=== PATIENT | female | born 2000 | race Two or more races ===

== ENCOUNTER 2024-11-29 21:25 | Emergency (ER) | payer MEDICAID, SELFPAY ==
[2024-11-29 21:25] VITALS: BMI 21.2
[2024-11-29 21:43] VITALS: BP 117/82; PULSE 82; RESP 16; TEMP 37.2; O2SAT 99
--- NOTE | 2024-11-29 21:53 | PD.EDRME ---
Rapid Medical Screening Exam RME Arrival date/time: 11/29/24 21:25 This is a 24-year-old female that comes in with complaints of right lower mid abdominal pain that radiates to her back. Patient complains of nausea. Patient reports a fever at home for the past 2 days. Patient denies any urinary symptoms. I have greeted and performed a focused initial assessment of this patient. Initial appropriate labs ordered at this time. A comprehensive ED assessment and evaluation of the patient and analysis of all test and completion of medical decision making process will be conducted by additional ED provider. Chief Complaint: Abdominal Pain Time Seen by Provider: 11/29/24 21:30 Vital signs: Vital Signs Temperature 99 F 11/29/24 21:43 Pulse Rate 82 11/29/24 21:43 Respiratory Rate 16 11/29/24 21:43 Blood Pressure 117/82 11/29/24 21:43 Pulse Oximetry (%) 99 11/29/24 21:43 Oxygen Delivery Method Room Air 11/29/24 21:43
[2024-11-29 22:12] LABS: Collection Type, Urine Voided
[2024-11-29] MEDS: ACETAMINOPHEN 325 MG TABLET 650 MG PO (22:16)
[2024-11-29] MEDS: IBUPROFEN TAB 600 MG TABLET PO (22:17)
[2024-11-29 22:33] LABS: HCG,Qualitative Serum Negative
[2024-11-29 22:34] LABS: Bacteria,Urine 1+; Bilirubin,Urine Negative (Negative); Blood,Urine 3+ (Negative); Clarity,Urine Turbid (Clear/Hazy); Color,Urine Yellow (Lt Yel-Yel); Culture Indicated,Urine Contaminated; Glucose, Urine Negative (Negative); Ketones,Urine Negative (Negative); Leukocyte Esterase,Urine Positive (Negative); Nitrite,Urine Positive (Negative); Protein,Urine 1+ (Neg - Trace); RBC,Urine 226 /hpf (0-3); Specific Gravity,Urine 1.015 (1.001-1.035); Squamous Epithelial Cell,Urine 15 /hpf (0-5); Urobilinogen,Urine Negative mg/dL (0.0-1.0); WBC,Urine 310 /hpf (0-5)
[2024-11-29 22:49] VITALS: BP 112/64; PULSE 87; RESP 16; TEMP 37.2; O2SAT 100
--- NOTE | 2024-11-29 22:51 | EDNOTE_ITS ---
ED General RME/HPI General Chief complaint: Abdominal Pain Stated complaint: flank pain right Time Seen by Provider: 11/29/24 21:30 Arrival date/time: 11/29/24 21:25 RME / HPI RME / HPI narrative: 11/29/24 21:25 RME: This is a 24-year-old female that comes in with complaints of right lower mid abdominal pain that radiates to her back. Patient complains of nausea. Patient reports a fever at home for the past 2 days. Patient denies any urinary symptoms. RAUL HPI: 24-year-old female otherwise healthy, implantable control, presents to the emergency department with right flank pain that radiates to the right upper quadrant and right lower quadrant. She also notes associated anorexia, no nausea or vomiting. She denies dysuria but notes increased urinary frequency particularly nocturia where for the last 3 nights she has been up to the restroom 2 times a night. She denies vaginal discharge or bleeding. She denies . She is sexually active Related Data Previous Rx's ?Medication ?Instructions ?Recorded amoxicillin 250 mg-potassium 1 tab PO TID #30 tabs 10/01/19 clavulanate 125 mg tablet cephalexin 500 mg capsule 500 mg PO Q8H #20 caps 11/29/24 ondansetron 4 mg disintegrating 4 mg PO Q8H PRN nausea and 11/29/24 tablet vomiting #10 tabs Allergies Allergy/AdvReac Type Severity Reaction Status Date / Time No Known Allergies Allergy Verified 02/20/21 17:28 Review of Systems Review of Systems Systems Reviewed: All systems reviewed, normal except as documented ED Exam Narrative Physical exam: GENERAL APPEARANCE: AxOx4, generally well-appearing, no acute distress. HEENT: NC, AT. MMM. EOMI, clear conjunctiva, oropharynx clear. NECK: Supple without lymphadenopathy. No stiffness or restricted ROM. HEART: Normal rate and regular rhythm, normal S1/S1, no m/r/g LUNGS: CTAB, moving air well. No crackles or wheezes are heard. ABDOMEN: Soft, nontender, nondistended with good bowel sounds heard. BACK: No midline C/T/L spine pain or deformity, right CVAT, no obvious deformity. EXTREMITIES: Without cyanosis, clubbing or edema. MUSCULOSKELETAL: FROM of all major joints, no chest tenderness NEUROLOGICAL: Grossly nonfocal. Alert and oriented, moving all 4 extremities. CN not formally tested but appear grossly intact. Observed to ambulate with normal gait. Skin: Warm and dry without any rash. Course Quality Measures none Orders Category Date Time Status HCG,Qualitative Serum Stat Lab 11/29/24 21:50 Completed Urinalysis, C/S if Indicated Stat Lab 11/29/24 22:05 Completed Urine Culture Stat Lab 11/29/24 22:05 Received Acetaminophen Tab [Tylenol Tab] Med 11/29/24 22:11 Discontinued 650 mg PO X1 ONE Ibuprofen Tab [Motrin Tab] Med 11/29/24 22:11 Discontinued 600 mg PO X1 ONE cefTRIAXone [Rocephin] 1,000 mg Med 11/29/24 22:51 Discontinued Lidocaine 1% 20 ml [Xylocaine 1% 20 ML] 2.1 ml IM X1 Vital Signs Vital signs: Vital Signs Temperature 99 F 11/29/24 21:43 Pulse Rate 82 11/29/24 21:43 Respiratory Rate 16 11/29/24 21:43 Blood Pressure 117/82 11/29/24 21:43 Pulse Oximetry (%) 99 11/29/24 21:43 Oxygen Delivery Method Room Air 11/29/24 21:43 SpO2 99% on room air, not hypoxic MDM Patient data External records reviewed:: [facility] previous records Clinical information provided by:: patient Social determinants that could affect healthcare access:: none Patient has the following chronic illnesses:: None How is presenting disease/condition affected by chronic disease/condition?: no chronic disease Evaluation data The following diagnostics were reviewed and interpreted by me:: lab results Lab and/or radiology exams considered but not ordered:: as per narrative Interpretation Summary: As per narrative Medications Medications considered but not ordered:: None Medication administrations:: Medication Administration History Discontinued Medications Acetaminophen (Acetaminophen 325 Mg Tablet) 650 mg PO X1 ONE Stop: 11/29/24 22:12 Last Admin: 11/29/24 22:16 Dose: 650 mg Documented By: MELI Ceftriaxone Sodium 1,000 mg/ (Lidocaine HCl 2.1 ml) 0 mg IM X1 ONE Stop: 11/29/24 22:52 Ibuprofen (Ibuprofen Tab 600 Mg Tablet) 600 mg PO X1 ONE Stop: 11/29/24 22:12 Last Admin: 11/29/24 22:17 Dose: 600 mg Documented By: MELI above Consultations Consultation(s) initiated? (list below): No Diagnosis Differential Diagnosis ED Complaint MDM: Pyelonephritis, lumbar strain, cholelithiasis Most likely diagnosis given after review of the tests above:: See below Admission Indicated Admission indicated?: not indicated Explain why admission is indicated or not indicated:: As per narrative Admission Request Was there a request for admission?: No Disposition Plan Disposition Plan: Discharge Discharge Attestation Discharge Attestation: The patient and all family members were given an opportunity to ask questions and understood the discharge instructions. Discharge instructions specifically effects, indications for sooner follow up or return to the emergency department, and the expected course of current diagnosis. Patient condition: Stable Medical Decision Making MDM Narrative MDM Narrative: Ms. Shaikh is a clinically well-appearing female with stable vital signs who presents to the emergency department with right CVA tenderness, and urinary changes that are consistent with a mild pyelonephritis. She has anorexia without vomiting. She is not . She does not meet criteria for complicated pyelonephritis. Urinalysis is contaminated but is positive for nitr ites, leukocytes, and trace bacteria. At this point given her symptomatology this would be consistent with UTI/pyelonephritis. As it is contaminated will not be able to send it for urine culture. She was treated with IM antibiotics in the emergency department and will be discharged with 7 days of cephalexin. Differential Diagnosis Differential Diagnosis: Pyelonephritis, lumbar strain, cholelithiasis Lab Data Labs: Lab Results 11/29/24 11/29/24 Range/Units 21:50 22:05 HCG, Qual Negative Ur Collection Type Voided Urine Color Yellow (Lt Yel-Yel) Urine Clarity Turbid A (Clear/Hazy) Urine pH 6.0 (5.0-7.0) Ur Specific Asher 1.015 (1.001-1.035) Urine Protein 1+ A (Neg - Trace) Urine Glucose (UA) Negative (Negative) Urine Ketones Negative (Negative) Urine Blood 3+ A (Negative) Urine Nitrite Positive (Negative) Urine Bilirubin Negative (Negative) Urine Urobilinogen (Auto) Negative (0.0-1.0) mg/dL Ur Leukocyte Esterase Positive (Negative) Urine RBC 226 H (0-3) /hpf Urine WBC 310 H (0-5) /hpf Ur Squamous Epith Cells 15 H (0-5) /hpf Urine Bacteria 1+ A (None) Ur Culture Indicated? Contaminated Discharge Plan Plan Patient Disposition: HOME (Self Care) Prescriptions/Referrals Prescriptions/Med Rec: New cephalexin 500 mg capsule 500 mg PO Q8H Qty: 20 0RF ondansetron 4 mg tablet,disintegrating 4 mg PO Q8H PRN (Reason: nausea and vomiting) Qty: 10 0RF No Action amoxicillin-pot clavulanate 250-125 mg tablet 1 tab PO TID Qty: 30 0RF Referrals: No Primary/Family,Physician [Primary Care Provider] - In 1 week Problem List Clinical Impression: Pyelonephritis Patient/Caregiver Discharge Instructions Education Materials: ED Pyelonephritis, Female (Adult) Additional Instructions: Follow-up with your primary care doctor in 3 to 5 days if symptoms or not improving. You can return to the emergency department sooner if symptoms worsen or if you notice any new, concerning issues. Print Language: Lithuanian Stand Alone Forms: [employer] Award Info., Patient Portal Info Letter
[2024-11-29] MEDS: cefTRIAXone 1,000 MG, LIDOCAINE 1% 20 ML 2.1 ML IM (22:57)
== END 2024-11-29 23:08 | disposition home or self-care (01) ==
PROVIDERS: Nurse Practitioner Family; Emergency Provider Emergency Medicine
DX: N12 Tubulo-interstitial nephritis, not specified as acute or chronic (principal)
CPT/HCPCS: 36415; 80053; 81001; 83690; 84703; 85025; 87077; 87086; 87186; 96372; 99283; J0696; J3490; A9270

== ENCOUNTER 2025-10-07 19:13 | Emergency (ER) | payer BC, SELFPAY ==
[2025-10-07 19:16] VITALS: BMI 20.6
[2025-10-07 19:27] VITALS: BP 126/83; PULSE 80; RESP 16; TEMP 36.7; O2SAT 99
--- NOTE | 2025-10-07 19:40 | PD.EDEYE ---
ED Eye Problem RME/HPI General Chief complaint: Eye Problems Stated complaint: L EYE SWELLING/INFECTED Time Seen by Provider: 10/07/25 19:38 Arrival date/time: 10/07/25 19:13 25-year-old male patient was brought in by family for evaluation regarding left lower eyelid swelling. Onset of symptoms for the last few days is worsening swelling and redness to the left lower eyelid. Patient denies any headache denies any eyeball pain. Patient denies any fever. Denies any visual changes denies any other complaints patient been applying [id number] eyedrops and warm compress with no improvement of symptoms. Related Data Previous Rx's ?Medication ?Instructions ?Recorded amoxicillin 250 mg-potassium 1 tab PO TID #30 tabs 10/01/19 clavulanate 125 mg tablet cephalexin 500 mg capsule 500 mg PO Q8H #20 caps 11/29/24 ondansetron 4 mg disintegrating 4 mg PO Q8H PRN nausea and 11/29/24 tablet vomiting #10 tabs clindamycin HCl 300 mg capsule 300 mg PO TID #21 caps 10/07/25 (Cleocin HCl) erythromycin 5 mg/gram (0.5 %) eye 1 applic ophthalmic (eye) QID #3.5 10/07/25 ointment grams Allergies Allergy/AdvReac Type Severity Reaction Status Date / Time No Known Allergies Allergy Verified 10/07/25 19:19 Review of Systems Review of Systems Narrative Review of Systems: Review of system reviewed and within normal limits except mentioned in HPI ED Exam Narrative Physical exam: VITAL SIGNS: Reviewed. GENERAL APPEARANCE: Alert and interactive, follows commands, no acute distress, HEAD AND FACE: Non-traumatic. ENT: PERRL, pink conjunctivitis, 1 x 1 cm swelling, left lower eyelid mucous membrane moist. Full range of motion of the eyeball with no tenderness no swelling to the periorbital area, nontender NECK: Supple, nontender, no nuchal rigidity. RECTAL: Deferred. GENITAL: Deferred. NEUROLOGICAL: Gross motor function intact sensory function intact, Appropriate for age. MUSCULOSKELETAL: low back nontender, full range of motion. EXTREMITIES: Nontender, full range of motion. SKIN: Color pink, dry, no rash, no lacerations, no abrasions, no contusions. LYMPHATICS: Deferred. Course Quality Measures none Orders Category Date Time Status Erythromycin Op Oint 0.5% Med 10/07/25 19:38 Discontinued 1 gm LEFT EYE X1 ONE Ibuprofen Tab [Motrin Tab] Med 10/07/25 19:54 Discontinued 800 mg PO X1 ONE cefTRIAXone [Rocephin] 1,000 mg Med 10/07/25 19:39 Discontinued Lidocaine 1% Pf 5 ml [Xylocaine 1% Pf 5 ml] 2.1 ml IM X1 Vital Signs Vital signs: Vital Signs Temperature 98.1 F 10/07/25 19: Pulse Rate 80 10/07/25 19: Respiratory Rate 16 10/07/25 19: Blood Pressure 126/83 10/07/25 19:27 Pulse Oximetry (%) 99 10/07/25 19:27 Oxygen Delivery Method Room Air 10/07/25 19:27 Eye MDM Narrative MDM Narrative:: 25-year-old male patient was brought in by family for evaluation regarding left lower eyelid swelling. Onset of symptoms for the last few days is worsening swelling and redness to the left lower eyelid. Patient denies any headache denies any eyeball pain. Patient denies any fever. Denies any visual changes denies any other complaints patient been applying [id number] eyedrops and warm compress with no improvement of symptoms. Plan of care discussed with the family, I told them that in is emergency room nobody is doing I&D for the eyelid. Case discussed with Dr Barker who recommends warm compress, antibiotic treatment, and see ophthalmology/ENT in the morning. There is no sign of orbital cellulitis or periorbital cellulitis at this time. Patient is stable for charged home . Patient data External records reviewed:: None Clinical information provided by:: none Social determinants that could affect healthcare access:: none Patient has the following chronic illnesses:: None How is presenting disease/condition affected by chronic disease/condition?: no chronic disease Evaluation data The following diagnostics were reviewed and interpreted by me:: other (specify) (None) Lab and/or radiology exams considered but not ordered:: None Interpretation Summary: None Medications / Prescriptions Medications or Prescriptions considered but not ordered:: None Medication administrations:: Medication Administration History Discontinued Medications Ceftriaxone Sodium 1,000 mg/ (Lidocaine HCl 2.1 ml) 0 mg IM X1 ONE Stop: 10/07/25 19:40 Last Admin: 10/07/25 19:51 Dose: 2.1 mg Documented By: ROSI Erythromycin (Erythromycin Op Oint 0.5% 1 Gm Packet) 1 gm LEFT EYE X1 ONE Stop: 10/07/25 19:39 Last Admin: 10/07/25 19:51 Dose: 1 gm Documented By: ROSI Co-signed By: MARÍA Ibuprofen (Ibuprofen Tab 400 Mg Tablet) 800 mg PO X1 ONE Stop: 10/07/25 19:55 Ceftriaxone, erythromycin and Motrin Consultations Consultation(s) initiated? (list below): No Diagnosis Eye Problem Differential Diagnosis: conjunctivitis, periorbital cellulitis and other (Infected stye) Most likely diagnosis given after review of the tests above:: Infected stye left lower eyelid Admission Indicated Admission indicated?: not indicated Admission Request Was there a request for admission?: No Disposition Plan Disposition Plan: Discharge Discharge Attestation Discharge Attestation: The patient and all family members were given an opportunity to ask questions and understood the discharge instructions. Discharge instructions specifically effects, indications for sooner follow up or return to the emergency department, and the expected course of current diagnosis. Patient condition: Stable Discharge Plan Plan Patient Disposition: HOME (Self Care) Discharge Disposition comment: Stable Prescriptions/Referrals Prescriptions/Med Rec: New clindamycin HCl [Cleocin HCl] 300 mg capsule 300 mg PO TID Qty: 21 0RF erythromycin 5 mg/gram (0.5 %) ointment 1 applic ophthalmic (eye) QID Qty: 3.5 0RF No Action amoxicillin-pot clavulanate 250-125 mg tablet 1 tab PO TID Qty: 30 0RF cephalexin 500 mg capsule 500 mg PO Q8H Qty: 20 0RF ondansetron 4 mg tablet,disintegrating 4 mg PO Q8H PRN (Reason: nausea and vomiting) Qty: 10 0RF Problem List Clinical Impression: Hordeolum externum left lower eyelid Patient/Caregiver Discharge Instructions Discharge Activity: activity as tolerated Education Materials: ED Sty Additional Instructions: Thank you for the opportunity for serving you today. You are stable for discharged . You are advised to: Follow-up with your PCP in the morning and ask for referral to data keyer MD Return to ED for worsening of symptoms Increase oral fluids Warm compress for 15 minutes 3 times a day as needed Take medication as prescribed Print Language: Montserratian Stand Alone Forms: [employer] Award Info., Patient Portal Info Letter PA/ROMINA Supervising Physician PA/FIXED INCOME ANALYST Supervising Physician: MD Mj
[2025-10-07] MEDS: Erythromycin Op Oint 0.5% 1 GM PACKET LEFT EYE (19:51)
== END 2025-10-07 20:37 | disposition home or self-care (01) ==
PROVIDERS: Emergency Provider Emergency Medicine
DX: H00.015 Hordeolum externum left lower eyelid (principal)
CPT/HCPCS: 96372; 99282; J0696; J3490; A9270